=== PATIENT | male | born 1955 | race Caucasian/White ===

== ENCOUNTER 2023-06-05 13:20 | Day surgery (SDC) | payer BC, OTHER ==
[2023-06-03 11:55] LABS: Absolute Lymphocytes (CBC) 0.8 K/uL (0.7-4.9); Hematocrit 40.7 % (39.6-49.0); Lymphocytes % 20.3 % (15.3-44.8); MCV 88.6 fL (80-100); MPV 7.8 fL (7.6-11.3); Platelets 211 thou/uL (152-406)
[2023-06-03 12:13] LABS: Potassium 4.5 mEq/L (3.5-5.1)
--- NOTE | 2023-06-03 16:38 | EKG ---
Test Date: 2023-06-03 Test Time: 12:36:51 Physical Therapy Instructor: PREO MEASUREMENT RESULTS: Intervals: Rate: 58 AR: 150 QRSD: 84 QT: 428 QTc: 420 [place]: P: 41 AR: 150 QRS: -22 T: 15 INTERPRETIVE STATEMENTS: Sinus bradycardia Otherwise normal ECG Compared to ECG 05/05/2016 13:06:41 Sinus rhythm no longer present Sinus arrhythmia no longer present Electronically Signed On 06-03-23 16:37:23 HEAD OF MUSIC by Keith Blanca
[2023-06-05] MEDS: Ringers Lactate 1,000 ML IV ONE (13:50)
[2023-06-05 14:43] VITALS: O2SAT 100
[2023-06-05] MEDS ORDERED: LIDOCAINE 1% MPF 5 ML VIAL ONE (15:57)
[2023-06-05] MEDS ORDERED: propofoL 200 MG/20 ML VIAL IV ONE ×2 (15:57→16:56)
[2023-06-05 17:56] VITALS: TEMP 97.3
[2023-06-05 18:15] VITALS: BP 112/83
== END 2023-06-05 17:59 | disposition home or self-care (01) ==
LOC: OR 13:20
PROVIDERS: ATTEND Surgery
PROC: 0DBL8ZX Excision of Transverse Colon, Via Natural or Artificial Opening Endoscopic, Diagnostic (ICD-10-PCS; 2023-06-05)
PROC: 0DBN8ZX Excision of Sigmoid Colon, Via Natural or Artificial Opening Endoscopic, Diagnostic (ICD-10-PCS; 2023-06-05)
PROC: 0DBK8ZX Excision of Ascending Colon, Via Natural or Artificial Opening Endoscopic, Diagnostic (ICD-10-PCS; principal; 2023-06-05 15:30)
DX: Z12.11 Encounter for screening for malignant neoplasm of colon (principal); K64.8 Other hemorrhoids; K57.32 Diverticulitis of large intestine without perforation or abscess without bleeding; K51.90 Ulcerative colitis, unspecified, without complications; D12.2 Benign neoplasm of ascending colon
CPT/HCPCS: 45385; 93005; 85025; 80048; 36415; 88305; J2704 ×2; J2001; J7120; 88304

== ENCOUNTER 2024-07-07 09:43 | Day surgery (SDC) | payer OTHER ==
[2024-07-05 11:28] LABS: Absolute Eosinophils 0.1 K/uL (0-0.5); Absolute Lymphocytes (CBC) 0.8 K/uL (0.7-4.9); Absolute Monocytes 0.3 K/uL (0.1-1.3); Absolute Neutrophil 2.6 K/uL (1.8-8.0); Basophils % 0.6 % (0-1.3); Eosinophils % 2.5 % (0-4.4); Hemoglobin 14.1 g/dL (13.6-17.9); Lymphocytes % 20.7 % (15.3-44.8); MCH 29.7 pg (27.0-35.0); MCHC 33.5 g/dL (32.0-36.0); MCV 88.7 fL (80-100); MPV 8.7 fL (7.6-11.3); Monocytes % 7.9 % (3.3-12.3); Neutrophils % 68.3 % (41.7-73.7); Platelets 194 thou/uL (152-406); RBC Red Blood Cell Count 4.74 M/uL (4.33-5.43); Red Cell Distribution Width 15.4 % (12.1-15.2)
[2024-07-05 11:41] LABS: Anion Gap 6.4 mEq/L (5.0-15.0); Potassium 4.4 mEq/L (3.5-5.1)
--- NOTE | 2024-07-05 12:00 | EKG ---
Test Date: 2024-07-05 Test Time: 10:33:01 Supply Chain Logistics Manager: TIANNA MEASUREMENT RESULTS: Intervals: Rate: 62 MD: 158 QRSD: 86 QT: 414 QTc: 420 [place]: P: 46 MD: 158 QRS: -28 T: 39 INTERPRETIVE STATEMENTS: Normal sinus rhythm Normal ECG Compared to ECG 06/03/2023 12:36:51 Sinus bradycardia no longer present Electronically Signed On 07-05-24 11:59:03 CDT by Bernardo Vital
[2024-07-07] MEDS ORDERED: propofoL 200 MG/20 ML VIAL IV ONE (11:35)
[2024-07-07] MEDS ORDERED: LIDOCAINE 1% MPF 5 ML VIAL ONE (11:35)
[2024-07-07] MEDS: Ringers Lactate 1,000 ML IV ONE (11:36)
[2024-07-07 13:39] VITALS: TEMP 98
[2024-07-07 13:41] VITALS: BP 114/99; O2SAT 98
== END 2024-07-07 13:12 | disposition home or self-care (01) ==
LOC: OR 09:43
PROVIDERS: ATTEND Surgery
PROC: 0DBH8ZX Excision of Cecum, Via Natural or Artificial Opening Endoscopic, Diagnostic (ICD-10-PCS; principal; 2024-07-07 12:00)
DX: Z12.11 Encounter for screening for malignant neoplasm of colon (principal); K57.30 Diverticulosis of large intestine without perforation or abscess without bleeding; K64.8 Other hemorrhoids; D12.0 Benign neoplasm of cecum
CPT/HCPCS: 45385; 93005; 85025; 80048; 36415; 88305; J2704; J2003; J7120